=== PATIENT | male | born 2000 | race Caucasian/White ===

== ENCOUNTER 2020-01-25 11:26 | Outpatient (REF) | payer OTHER, SELFPAY | END 2020-01-25 11:27 | disposition home or self-care (01) | LOC: HO.LAB 11:26 | PROVIDERS: Visit Provider Nurse Practitioner Family | DX: Z20.828 Contact with and (suspected) exposure to other viral communicable diseases (principal) | CPT/HCPCS: 87635 ==

== ENCOUNTER 2020-01-25 11:31 | Outpatient (REF) | payer OTHER, SELFPAY ==
--- NOTE | 2020-01-25 11:38 | XR_ITS ---
EXAMINATION: XR CHEST CLINICAL INFORMATION: Cough COMPARISON: April 05, 2009 TECHNIQUE: 2 views of the chest were obtained. FINDINGS: No significant abnormality is noted involving the heart, lungs, mediastinum, bony thorax or soft tissues. IMPRESSION: No acute disease
== END 2020-01-25 11:32 | disposition home or self-care (01) ==
LOC: HO.HMGCX 11:31
PROVIDERS: Visit Provider Nurse Practitioner Family
DX: R05 Cough (principal)
CPT/HCPCS: 71046

== ENCOUNTER 2020-02-09 15:25 | Emergency (ER) | payer OTHER, SELFPAY ==
[2020-02-09 16:29] VITALS: BP 142/95; PULSE 129; RESP 22; TEMP 36.9; O2SAT 98; BMI 58.1
--- NOTE | 2020-02-09 16:39 | ED.NAVMDI ---
HPI - Nausea/Vomiting/Diarrhea General Chief complaint: Nausea/Vomiting/Diarrhea Stated complaint: Dehydration Time Seen by Provider: 02/09/20 16:38 Source: patient Mode of arrival: ambulatory History of Present Illness HPI Narrative: 19-year-old male with no significant past medical history presented to ED complaining of nausea, anorexia/decreased p.o. intake, diarrhea, intermittent abdominal cramping x4 days. Admits recently tested negative for COVID-19 last week when had URI symptoms. Reports some dry heaving. Denies constipation, fever, chills, cough, sore throat, recent travel, sick contacts, suspicious food intake MD elicited complaint: nausea and diarrhea Related Data Home Medications Medication Instructions Recorded Confirmed hydroxyzine HCl 50 mg tablet 50 mg PO TID PRN 01/25/20 Previous Rx's Medication Instructions Recorded albuterol sulfate 90 mcg/actuation 2 puff INHALATION Q4-6H PRN #6.7 g 01/25/20 aerosol inhaler Allergies Allergy/AdvReac Type Severity Reaction Status Date / Time SEAFOOD Allergy Unknown SWELLING Uncoded 12/22/19 17:52 shellfish Allergy Unknown Uncoded 06/23/19 00:00 Review of Systems Review of Systems: Constitutional: No Weight loss, No Fever, + Chills ENT/Mouth: No Ear Pain, No Nasal Congestion, No sore throat, No Rhinorrhea, No Swallowing Difficulty Cardiovascular: No Chest Pain, No SOB Respiratory: No Cough, No Sputum, No Wheezing Gastrointestinal: + Nausea, + Vomiting, + Diarrhea, No Constipation, + Abdominal cramping Genitourinary:, No Dysuria, No Urinary Frequency, No Flank Pain Musculoskeletal: No joint pain, No Myalgias, No Joint Swelling Skin: No Skin Lesions, No rash Yes all other systems are reviewed and are negative [facility] Past Medical History Attestation statement: The following information was validated with the patient. Social History Social History Advance Directives: No Advance Directives Information Provided: No Physical Exam Vital Signs: Vital Signs: Last Vital Signs Temp 100.0 F 02/09/20 18:01 Pulse 106 H 02/09/20 18:01 Resp 18 02/09/20 18:01 BP 128/80 02/09/20 18:01 Pulse Ox 98 02/09/20 18:01 Body Mass Index 58.1 Const: General: cooperative and healthy appearing Orientation/consciousness: patient oriented x3 Limitations: no limitations HENMT: Head: Yes normal to inspection Ears: hearing grossly normal bilaterally General nose exam: Normal external nose present Face and sinus: Yes normal facial exam Eyes: General: appearance normal, both eyes and all related structures EOM: EOMs intact bilaterally Neck: Neck: Yes normal visual inspection and Yes no meningeal signs Resp: Effort & Inspection: normal respiratory effort GI: Inspection: Yes normal to inspection Palpation (GI): Soft to palpation, nontender, no guarding and not rigid : General: Yes no CVA tenderness Back/Spine/Pelvis: Back: no CVA tenderness Skin: Rashes: no rashes Wounds: no wounds Neuro: General: patient oriented x3 and no meningeal signs Gait exam (Neuro): Normal gait present Extrem: General: Yes normal to inspection Course Course Course Narrative: -slight anion gap of 21, likely from dehydration, lactate 1.1 --1800--ED care transferred to MANUEL Cornelius pending UA, and repeat VS MDM - Nausea/Vomiting/Diarrhea MDM Narrative Medical decision making narrative: 19-year-old male with no significant past medical history presented to ED complaining of nausea, anorexia/decreased p.o. intake, diarrhea, intermittent abdominal cramping x4 days. On exam tachycardic, tachypneic, nontoxic/well-appearing, abdomen soft/nontender. Concern for dehydration vs viral syndrome/gastroenteritis vs COVID-19. Lower concern for infectious etiology including appendicitis/diverticulitis/cholecystitis or UTI. Low concern for severe sepsis Plan: Labs, UA, IVF/symptomatic therapies, reassess Differential Diagnosis Differential diagnosis: Likely food poisoning, gastroenteritis and dehydration Lab Data Result diagrams: 02/09/20 16:57 02/09/20 16:57 Labs: Lab Results 02/09/20 02/09/20 02/09/20 Range/Units 16:57 16:57 16:57 WBC 10.4 (4.8-10.8) X10*3/uL RBC 5.36 (4.60-5.80) X10*6/uL Hgb 16.8 (14.0-18.0) g/dl Hct 46.5 (42-52) % MCV 86.8 (80-98) fL MCH 31.3 (27.0-33.0) pg MCHC 36.1 H (31.0-36.0) g/dl RDW 11.9 (11.0-16.0) % Plt Count 315 (160-400) X10*3/uL MPV 10.5 (9.4-12.4) fL Immature Gran % (Auto) 0.3 (0.0-0.4) % Neut % (Auto) 80.8 H (45-73) % Lymph % (Auto) 12.2 L (20-40) % [place] % (Auto) 6.2 (2-11) % Eos % (Auto) 0.1 (0-4) % Baso % (Auto) 0.4 (0-2) % Lymph # (Auto) 1.3 (1.2-4.9) X10*3/uL [place] # (Auto) 0.6 (0.1-1.2) X10*3/uL Eos # (Auto) 0.0 (0.0-0.4) X10*3/uL Baso # (Auto) 0.0 (0.0-0.2) X10*3/uL Abs Immat Gran (auto) 0.03 (0.00-0.03) X10*3/uL Absolute Neuts (auto) 8.4 H (2.0-8.3) X10*3/uL Absolute Nucleated RBC 0.000 (0.0-0.012) X10*3/uL Nucleated RBC % (auto) 0.0 (0.0-0.2) /100WBC Hold Blue Top SEE NOTE Sodium 140 (135-145) mmol/L Potassium 3.9 (3.3-5.1) mmol/l Chloride 103 (96-108) mmol/L Carbon Dioxide 20 L (22-29) mmol/L Anion Gap 21 H (12-20) BUN 15 (9-16) mg/dL Creatinine 1.00 (0.5-1.4) mg/dL Estim Creat Clear Calc 213.2 Estimated GFR > 60 Random Glucose 69 (60-115) mg/dL Lactic Acid (0.5-2.0) mmol/L Calcium 9.5 (8.4-10.2) mg/dL Magnesium 2.2 (1.6-2.6) mg/dL Total Bilirubin 1.3 H (0.0-1.0) mg/dL Direct Bilirubin 0.5 (0.0-0.5) mg/dL AST 18 (5-37) U/L ALT 24 (0-40) U/L Alkaline Phosphatase 62 (39-117) U/L Total Protein 8.4 H (6.5-8.0) g/dL Albumin 5.2 H (3.5-5.0) g/dL Lipase 9 (8-78) U/L 02/09/20 Range/Units 16:57 WBC (4.8-10.8) X10*3/uL RBC (4.60-5.80) X10*6/uL Hgb (14.0-18.0) g/dl Hct (42-52) % MCV (80-98) fL MCH (27.0-33.0) pg MCHC (31.0-36.0) g/dl RDW (11.0-16.0) % Plt Count (160-400) X10*3/uL MPV (9.4-12.4) fL Immature Gran % (Auto) (0.0-0.4) % Neut % (Auto) (45-73) % Lymph % (Auto) (20-40) % [place] % (Auto) (2-11) % Eos % (Auto) (0-4) % Baso % (Auto) (0-2) % Lymph # (Auto) (1.2-4.9) X10*3/uL [place] # (Auto) (0.1-1.2) X10*3/uL Eos # (Auto) (0.0-0.4) X10*3/uL Baso # (Auto) (0.0-0.2) X10*3/uL Abs Immat Gran (auto) (0.00-0.03) X10*3/uL Absolute Neuts (auto) (2.0-8.3) X10*3/uL Absolute Nucleated RBC (0.0-0.012) X10*3/uL Nucleated RBC % (auto) (0.0-0.2) /100WBC Hold Blue Top Sodium (135-145) mmol/L Potassium (3.3-5.1) mmol/l Chloride (96-108) mmol/L Carbon Dioxide (22-29) mmol/L Anion Gap (12-20) BUN (9-16) mg/dL Creatinine (0.5-1.4) mg/dL Estim Creat Clear Calc Estimated GFR Random Glucose (60-115) mg/dL Lactic Acid 1.1 (0.5-2.0) mmol/L Calcium (8.4-10.2) mg/dL Magnesium (1.6-2.6) mg/dL Total Bilirubin (0.0-1.0) mg/dL Direct Bilirubin (0.0-0.5) mg/dL AST (5-37) U/L ALT (0-40) U/L Alkaline Phosphatase (39-117) U/L Total Protein (6.5-8.0) g/dL Albumin (3.5-5.0) g/dL Lipase (8-78) U/L Discharge Plan Discharge Clinical Impression: Dehydration, Viral syndrome Patient Disposition: Home, Self-Care Instructions: Dehydration (ED) Additional Instructions: Your blood work was pretty reassuring today in the ED You are dehydrated It is crucial that he stay hydrated at home, drink Gatorade, Pedialyte, and water You were also tested for COVID-19, the results should be back in 1-3 days, you will get a phone call that is positive or negative If you are unable to eat or drink, or spike high fevers unresolved by medication at home return to the ED immediately Based on your symptoms and history we have sent a COVID-19. Although your RESULT IS PENDING at this time. RESULTS should return within 72 hours. At this time you will be contacted with either NEGATIVE OR POSITIVE results. -Please wait until we contact you for your results. At this time you will be okay for discharge. Please plan for self quarantine for up to 14 days. Do not expose yourself to others. You may not go to work. If testing does come back negative you may return to activities as long as you are no longer having any symptoms for at least 3 days. Please continue to follow cold instructions and wash your hands frequently. You may take Tylenol as directed on the bottle for pain or fever. Patient seen in the emergency department on 09/30/2019 and should be excused from work until negative test results AND until 72 hours without any symptoms AND at least 10 days have passed since symptoms first appeared or since last exposure to COVID-19 positive patient CDC Guidelines for home isolation: - Stay away from others - WEAR A MASK if you are sick AND STAY HOME - Cover your mouth and nose with a tissue when you cough or sneeze. Dispose of tissues in a lined trash can and wash your hands immediately with soap and water for at least 20 seconds. If soap and water are not available, clean hands with alcohol-based hand cyber forensic specialist that contains at least 60% alcohol. - Clean your hands often with soap and water for at least 20 seconds - Avoid touching your eyes, nose and mouth with unwashed hands - Do not share dishes, drinking glasses, cups, eating utensils, towels, or bedding with other people in your home. After using these items, wash them thoroughly with soap and water or put in the esters and emulsifiers supervisor. - Clean high-touch surfaces in your isolation area ( sick room and bathroom) every day; let a caregiver clean and disinfect high-touch surfaces in other areas of the home. Clean the area or item with soap and water or another detergent if it is dirty. Then, use a household disinfectant. - Limit contact with pets and animals: If you must care for a pet, wash your hands before and after interacting with them) Prescriptions: No Action hydroxyzine HCl 50 mg tablet 50 mg PO TID PRNRF: 0 albuterol sulfate 90 mcg/actuation HFA aerosol inhaler 2 puff inhalation Q4-6H PRN (Reason: shortness of breath or wheezing) Qty: 6.7 RF: 0 Referrals: Physician,None [Primary Care Provider] - 2 days (Your PCP)
[2020-02-09 17:17] LABS: MANUAL DIFF FLAG NO
[2020-02-09] MEDS: Famotidine/PF 20 MG/2 ML VIAL IVPUSH (17:17)
[2020-02-09] MEDS: 0.9 % Sodium Chloride 1,000 ML 999 ML IVCONT ×2 (17:17→18:43)
[2020-02-09] MEDS: Magnesium Hydrox/Alum Hydrox 30 ML ORAL.SUSP PO (17:17)
[2020-02-09] MEDS: ondansetron HCL 4 MG/2 ML VIAL IVPUSH (17:17)
[2020-02-09 17:20] LABS: Basophils Percent Auto 0.4 % (0-2); Eosinophils Percent Auto 0.1 % (0-4); Hematocrit 46.5 % (42-52); Hemoglobin 16.8 g/dl (14.0-18.0); Imm Gran Abs Auto 0.03 X10*3/uL (0.00-0.03); Imm Gran Pct Auto 0.3 % (0.0-0.4); Lymphocytes Absolute Auto 1.3 X10*3/uL (1.2-4.9); Lymphocytes Percent Auto 12.2 % (20-40); Mean Corpuscular HGB Conc 36.1 g/dl (31.0-36.0); Mean Corpuscular Hemoglobin 31.3 pg (27.0-33.0); Mean Corpuscular Volume 86.8 fL (80-98); Mean Platelet Volume 10.5 fL (9.4-12.4); Monocytes Absolute Auto 0.6 X10*3/uL (0.1-1.2); Monocytes Percent Auto 6.2 % (2-11); Neutrophils Absolute Auto 8.4 X10*3/uL (2.0-8.3); Neutrophils Percent Auto 80.8 % (45-73); Platelet Count 315 X10*3/uL (160-400); Red Blood Count 5.36 X10*6/uL (4.60-5.80); Red Cell Distribution Width 11.9 % (11.0-16.0); White Blood Count 10.4 X10*3/uL (4.8-10.8)
[2020-02-09 17:30] LABS: Lactic Acid 1.1 mmol/L (0.5-2.0)
[2020-02-09 18:00] LABS: Alanine Aminotransferase 24 U/L (0-40); Albumin Level 5.2 g/dL (3.5-5.0); Alkaline Phosphatase 62 U/L (39-117); Anion Gap 21 (12-20); Aspartate Amino Transferase 18 U/L (5-37); Bilirubin Direct 0.5 mg/dL (0.0-0.5); Bilirubin Total 1.3 mg/dL (0.0-1.0); Blood Urea Nitrogen 15 mg/dL (9-16); Calcium 9.5 mg/dL (8.4-10.2); Carbon Dioxide 20 mmol/L (22-29); Chloride 103 mmol/L (96-108); Creatinine Clr Calc Pharmacy 213.2; Estimated Glomerular Filt Rate > 60; Glucose Random 69 mg/dL (60-115); Lipase 9 U/L (8-78); Magnesium 2.2 mg/dL (1.6-2.6); Potassium 3.9 mmol/l (3.3-5.1); Sodium 140 mmol/L (135-145); Total Protein 8.4 g/dL (6.5-8.0)
[2020-02-09 18:01] VITALS: BP 128/80; PULSE 106; RESP 18; TEMP 37.8; O2SAT 98
[2020-02-09] MEDS: Acetaminophen 325 MG TABLET 650 MG PO (18:42)
[2020-02-09 19:05] LABS: SARS COV2 PCR INHOUSE NEGATIVE (Negative)
[2020-02-09 21:33] VITALS: BP 138/80; PULSE 102; RESP 16; TEMP 37; O2SAT 99
[2020-02-09 21:35] LABS: Glucose Urine UA NEG (NEG); Leukocyte Esterase Urine NEG (NEG); Nitrite Urine NEG (NEG); Specific Gravity - Urine >= 1.030 (1.005-1.025); Urine Blood NEG (NEG); Urine Ketones >=80 MG/DL (NEG); Urine Protein NEG (NEG-TRACE)
[2020-02-09 21:40] LABS: Appearance Urine CLEAR; Color Urine YELLOW
[2020-02-09 22:56] LABS: Leukocytes Stool Qualitative NEGATIVE (NEGATIVE)
--- NOTE | 2020-02-09 23:45 | PC.NURSE ---
PT AWARE OF LABS AND COVID RESULTS PER MANUEL JONES. PT DRINKING GINGERALE AND EATING CRACKER WITHOUT ISSUE STOOL SAMPLE SENT AND OBTAINED.
== END 2020-02-09 22:00 | disposition home or self-care (01) ==
PROVIDERS: Physician Assistant; Emergency Provider Internal Medicine
DX: R11.2 Nausea with vomiting, unspecified (principal); B34.9 Viral infection, unspecified; E86.0 Dehydration; Z20.828 Contact with and (suspected) exposure to other viral communicable diseases
CPT/HCPCS: 36415; 80048; 80076; 81003; 83605; 83690; 83735; 85025; 87045; 87046; 89055; 96361; 96374; 96375; 99284; J2405; U0003

== ENCOUNTER 2022-10-15 07:23 | Outpatient (AMB) | payer BC, SELFPAY ==
--- NOTE | 2022-10-15 07:16 | MHC.PC.OV ---
Intake Visit Reasons: Followup anxiety, work restrictions Allergies shellfish derived Allergy (Severe, Verified 08/04/22 07:08) Anaphylaxis Medication List - Last Reconciled 10/15/22 by CARLYLE Griffin escitalopram oxalate 10 mg PO DAILY Tobacco use date assessed: 02/10/22 HPI Followup anxiety, work restrictions HPI Details Pt reports severe anxiety. He is seeing a therapist. Pt is interested in starting medication for this, will send escitalopram 10mg. Highly recommend pt sees a psychiatrist, he will speak to his therapist about this. Denies any SI and HI. Pt also c/o increased fatigue. Will order labs. [facility] Family History Mother Breast cancer Afib Mental health disorder Father Smoker Maternal Grandfather Myocardial infarct Maternal Uncle Cancer Social History Housing: House Patient Tobacco Use Status: Current someday Tobacco user Tobacco use type: Cigarette Cigarette Packs Per Day: 0.25 Cigarettes Per Day: 4 Years Smoked: 1 Packs Per Year: 0 Packs per year/per ci.20 e-Cigarette/Vaping Use: Never Used Second Hand Smoke Exposure: No service: No Current occupational status: employed Current occupation: Maintenance Current occupational exposures/hazards: Yes Cognitive needs: No Hearing needs: No Vision needs: No Questionnaire Thrive Questionnaire Date Thrive assessed: 02/10/22 PAUL-7 AMB Questionnaire PAUL-7 Date PAUL - 7 assessed: 02/10/22 Source: Developed by Drs. Selwyn Carrero, Shana Cadet, Desmond Cuellar and colleagues, with an educational fern from [employer]. Review of Systems Const Reports as per HPI Physical exam (Primary Care) Tobacco/Smoking Status: Tobacco use Status Tobacco use date assessed 02/10/22 10/15/22 07:20 Patient Tobacco Use Status Current someday Tobacco 10/15/22 07:20 Tobacco use type Cigarette 10/15/22 07:20 e-Cigarette/Vaping Use Never Used 10/15/22 07:20 Thrive Assessment: Date of Thrive Assessment Date Thrive assessed 02/10/22 10/15/22 07:20 Const General: cooperative Orientation/consciousness: patient oriented x3 Neuro General: patient oriented x3 Psych Appearance: grossly normal Mental Status: mental status grossly normal Speech and movement: Clear speech present Affect: normal affect Attitude: cooperative Thought process: Normal thought process present Thought content: Normal thought content present Insight: Good insight present (Psych) Judgement: Good judgement present (Psych) Telehealth Telehealth Location of provider rendering services: practice address Location of patient: address on file Patient Identification confirmed using: Name, : Yes Telehealth method: video Patient verbally consented to treatment: Yes Patient verbally consented to billing insurance company: Yes Patient informed of any privacy concerns related to visit: Yes Minutes spent on Phone/Video with Pt.: 10 Assessment and Plan Assessment & Plan (1) Physical exam: Code(s): Z00.00 - Encounter for general adult medical examination without abnormal findings (2) Fatigue: Code(s): R53.83 - Other fatigue Plan The patient agreed to the use of a medical transcription radiology for this encounter. Scribed for CARLYLE Forbes by Candy Gurrola medical transcription radiology, on 10/15/2022 at 07:15 EST. Orders: Orders Complete Blood Count Auto Diff Today Z00.00 - Encounter for general adult medical examination without abnormal findings Comprehensive [place]. Panel Fast Today Z00.00 - Encounter for general adult medical examination without abnormal findings TSH reflex Free T4 Today Z00.00 - Encounter for general adult medical examination without abnormal findings UA CC w/rflx Micro + Cult Today Z00.00 - Encounter for general adult medical examination without abnormal findings Lipid Panel Today Z00.00 - Encounter for general adult medical examination without abnormal findings Tick-borne Disease Molecular Today R53.83 - Other fatigue Vitamin D 25-OH Total Today R53.83 - Other fatigue Vitamin B12 and Folate Today R53.83 - Other fatigue Medications: New escitalopram oxalate 10 mg PO DAILY 30 tabs 3RF Coding Level of Care Code Tele Est Pt Level 3 (40431) Diagnoses Physical exam Z00.00 Fatigue R53.83
== END 2022-10-15 07:35 | disposition home or self-care (01) ==
PROVIDERS: PCP Nurse Practitioner Family; Visit Provider Nurse Practitioner Family
DX: R53.83 Other fatigue (principal)
CPT/HCPCS: 99213

== ENCOUNTER 2023-02-16 08:06 | Outpatient (AMB) | payer BC, SELFPAY ==
--- NOTE | 2023-02-16 08:15 | AM.OFFWIN_ITS ---
Intake Vital Signs 02/16/23 08:17 Height 6 ft 3 in Weight 198 lb 2 oz BMI 24.8 BP 128/80 Blood Pressure Location Rt brachial Position Sitting Pulse 120 H Pulse Source Pulse Oximeter Temp 98.8 F Temp Source Temporal Artery Scan Pulse Oximetry (%) 98 Oxygen Delivery Method Room Air Intake Visit Reasons: EST/covid positive, body aches/ [id number] Intake Note: pt is here for c.o covid positive at home test, c/o body aches. work is requesting diagnosis confirmation with work note Patient Tobacco Use Status: Current someday Tobacco user Allergies shellfish derived Allergy (Severe, Verified 02/16/23 08:50) Anaphylaxis Do you need a note to return to daycare/school/sports/work: Yes HPI EST/covid positive, body aches/ [id number] HPI Details 22-year-old male presents to the office for a sick visit. Patient is complaining of headache, sinus congestion postnasal drip. He works in the postal office. He tested positive for COVID yesterday. His symptoms are slightly worse today. His work needs a note stating he was COVID positive from a medical practitioner. [facility] Family History Mother Breast cancer Afib Mental health disorder Father Smoker Maternal Grandfather Myocardial infarct Maternal Uncle Cancer Social History Housing: House Patient Tobacco Use Status: Current someday Tobacco user Tobacco use type: Cigarette Cigarette Packs Per Day: 0.25 Cigarettes Per Day: 4 Years Smoked: 1 e-Cigarette/Vaping Use: Never Used Second Hand Smoke Exposure: No service: No Current occupational status: employed Current occupation: Maintenance Current occupational exposures/hazards: Yes Cognitive needs: No Hearing needs: No Vision needs: No Physical Exam Vital Signs: Last Vital Signs Temp 98.8 F 02/16/23 08:17 Pulse 120 H 02/16/23 08:17 BP 128/80 02/16/23 08:17 Pulse Ox 98 02/16/23 08:17 Oxygen Delivery Method Room Air 02/16/23 08:17 BMI result Body Mass Index 24.8 Const General: cooperative and healthy appearing Nutritional Appearance: well nourished Orientation/consciousness: patient oriented x3 Limitations: no limitations HEENT Head: Yes normal to inspection Eyes General: appearance normal, both eyes and all related structures Neck Neck: Yes normal visual inspection Chest Chest palpation & inspection: normal palpation of entire chest wall Resp Effort & Inspection: normal respiratory effort Neuro General: patient oriented x3 Assessment & Plan Assessment & Plan (1) Upper respiratory tract infection: Code(s): J06.9 - Acute upper respiratory infection, unspecified Plan: Rapid COVID testing ordered. Letter provided. Orders: Orders BinaxNOW Covid-19 Ag Today J06.9 - Acute upper respiratory infection, unspecified Coding Level of Care Code Est Pt Level 3 (38751) Diagnoses Upper respiratory tract infection J06.9
[2023-02-16 08:17] VITALS: BP 128/80; PULSE 120; TEMP 37.1; O2SAT 98; BMI 24.8
== END 2023-02-16 09:09 | disposition home or self-care (01) ==
PROVIDERS: PCP Nurse Practitioner Family; Visit Provider Internal Medicine
DX: J06.9 Acute upper respiratory infection, unspecified (principal)
CPT/HCPCS: 99213

== ENCOUNTER 2023-02-16 08:45 | Outpatient (REF) | payer BC, SELFPAY ==
[2023-02-16 08:58] LABS: Binax Internal Control QC Valid; Binax Now Covid-19 Ag Positive (Negative); Binax Performed by: PAULP
== END 2023-02-16 08:46 | disposition home or self-care (01) ==
LOC: HO.HMGCLDS 08:45
PROVIDERS: PCP Nurse Practitioner Family; Visit Provider Internal Medicine
DX: Z11.52 Encounter for screening for COVID-19 (principal); J06.9 Acute upper respiratory infection, unspecified
CPT/HCPCS: 87811; C9803

== ENCOUNTER 2025-01-16 06:41 | Outpatient (AMB) | payer BC, SELFPAY ==
--- NOTE | 2025-01-16 07:27 | A.OFFPC_ITS ---
Intake Visit Reasons: Discuss anxiety Allergies shellfish derived Allergy (Severe, Verified 02/16/23 08:50) Anaphylaxis Tobacco use date assessed: 02/10/22 HPI Discuss anxiety HPI Details History of Present Illness The patient is a 24-year-old male presenting for a follow-up regarding anxiety and depression. The patient reports improvement in his anxiety and depression, though he still experiences occasional episodes. He denies any suicidal or homicidal ideation. He previously attended therapy sessions but discontinued them, feeling they were not beneficial. The patient smokes cigarettes, which may contribute to his anxiety symptoms. He is currently employed and manages his work despite experiencing severe anxiety attacks occasionally. He has refused further therapy or psychiatric help and does not wish to take medications at this time. The patient has been advised to pursue further evaluation if his anxiety continues to impact his work. HTN: reports trending in the 120s/80s Review of Systems - Psychiatric: Reports improvement in an xiety and depression. Denies suicidal or homicidal ideation. -denies JENKINS, blurred vision, dizziness, C P, sob Plan 1. Anxiety The patient reports improvement in anxiety but still experiences severe attacks occasionally. He has refused therapy and medication but is advised to consider further evaluation if anxiety affects his work. 2. Depression The patient reports improvement in depression symptoms and denies suicidal ideation. He has discontinued therapy, feeling it was not beneficial. Discussion Notes I discussed with the patient the importance of monitoring his anxiety and depression symptoms, especially if they begin to interfere with his work. We talked about the potential benefits of therapy and medication, although he currently refuses these options. I advised him to seek further evaluation if his symptoms worsen. Patient Instructions - Monitor anxiety and depression symptom s closely. - Consider therapy or medication if symp toms worsen. - Seek further evaluation if anxiety imp acts work. [facility] Family History Mother Breast cancer Afib Mental health disorder Father Smoker Maternal Grandfather Myocardial infarct Maternal Uncle Cancer Social History Housing: House Patient Tobacco Use Status: Current someday Tobacco user Tobacco use type: Cigarette Cigarette Packs Per Day: 0.25 Cigarettes Per Day: 4 Years Smoked: 1 e-Cigarette/Vaping Use: Never Used Second Hand Smoke Exposure: No service: No Current occupational status: employed Current occupation: Maintenance Current occupational exposures/hazards: Yes Cognitive needs: No Hearing needs: No Vision needs: No Questionnaire Thrive Questionnaire Date Thrive assessed: 02/10/22 AUDIT C Alcohol Use Questionnaire (AUDIT-C) 2. How many drinks containing alcohol do you have on a typical day when you are drinking?: 1 or 2 3. How often do you have six or more drinks on one occasion?: Never Total Score: 0 PAUL-7 AMB Questionnaire PAUL-7 Date PAUL - 7 assessed: 02/10/22 Source: Developed by Drs. Selwyn Carrero, Shana Cadet, Desmond Cuellar and colleagues, with an educational fern from [id number]. Physical exam (Primary Care) Tobacco/Smoking Status: Tobacco use Status Tobacco use date assessed 02/10/22 02/16/23 08:03 Patient Tobacco Use Status Current someday Tobacco 02/16/23 08:18 Tobacco use type Cigarette 02/16/23 08:03 e-Cigarette/Vaping Use Never Used 02/16/23 08:03 Thrive Assessment: Date of Thrive Assessment Date Thrive assessed 02/10/22 02/16/23 08:03 Coding Level of Care Code Tele Est Pt Level 3 (82255) Diagnoses Depression with anxiety F41.8 Assessment & Plan Assessment & Plan (1) Depression with anxiety: Code(s): F41.8 - Other specified anxiety disorders Category: Medical Plan . Orders: Orders Comprehensive [place]. Panel Fast Today F41.8 - Other specified anxiety disorders TSH reflex Free T4 Today F41.8 - Other specified anxiety disorders UA CC w/rflx Micro + Cult Today F41.8 - Other specified anxiety disorders Lipid Panel Today F41.8 - Other specified anxiety disorders Complete Blood Count Auto Diff Today F41.8 - Other specified anxiety disorders
== END 2025-01-16 10:44 | disposition home or self-care (01) ==
LOC: HO.HMCC 06:41
PROVIDERS: PCP Nurse Practitioner Family; Visit Provider Nurse Practitioner Family
DX: F41.8 Other specified anxiety disorders (principal)